=== PATIENT | male | born 1965 | race Caucasian/White ===

== ENCOUNTER 2018-04-12 13:58 | Emergency (ER) | payer BC, OTHER ==
[2018-04-12 14:05] VITALS: BP 175/93
[2018-04-12] MEDS ORDERED: Lidocaine 2% W/EPI 1:100,000* 20 ML MDV INJ ONE (14:37)
--- NOTE | 2018-04-12 14:43 | UC ---
Skin Complaint HPI - HPI Summary HPI Summary: The pt is a 52 yo male with right forearm redness and swelling x 2 days He thinks he initially bumped arm at work He is a diabetic He has a hx of MRSA no f/c no n/v - History of Current Complaint Chief Complaint: UCSkin Time Seen by Provider: 04/12/18 14:30 Stated Complaint: R ARM INJURY-PAINFUL Hx Obtained From: Patient Onset/Duration: Gradual Onset, Lasting Days Timing: Constant Onset Severity: Mild Current Severity: Moderate Pain Intensity: 3 Pain Scale Used: 0-10 Numeric Location: Discrete Character: Swelling, Redness, Raised, Painful Aggravating Factor(s): Touch Alleviating Factor(s): Nothing Associated Signs & Symptoms: Positive: Tenderness. Negative: Nausea, Vomiting, Numbness, Thirst, Diaphoresis, Weakness, Pallor, Shivering, Difficulty Breathing , Fever, Chills, Cough, Wheezing, Chest Pain, Hoarseness, Throat Tightening, Rash, Abdominal Pain, Lightheadedness, Syncope, Drainage, Bruising, Red Streaks , Joint Swelling - Allergy/Home Medications Allergies/Adverse Reactions: Allergies Allergy/AdvReac Type Severity Reaction Status Date / Time No Known Allergies Allergy Verified 02/28/13 17:53 Home Medications: Home Medications amLODIPine TAB* [Norvasc 5 mg TAB*] 10 mg PO DAILY 04/12/18 [History Confirmed 04/12/18] Review of Systems All Other Systems Reviewed And Are Negative: Yes Constitutional: Positive: Negative Skin: Positive: Negative Eyes: Positive: Negative ENT: Positive: Negative Respiratory: Positive: Negative Cardiovascular: Positive: Negative Gastrointestinal: Positive: Negative Genitourinary: Positive: Negative Motor: Positive: Negative Neurovascular: Positive: Negative Musculoskeletal: Positive: Negative Neurological: Positive: Negative Psychological: Positive: Negative PMH/Surg Hx/FS Hx/Imm Hx Previously Healthy: Yes Endocrine History: Diabetes Cardiovascular History: Hypertension - Surgical History Surgical History: Yes Surgery Procedure, Year, and Place: rectal abscess removed 1999 - Family History Known Family History: Positive: Cardiac Disease, Diabetes - Social History Alcohol Use: Weekly Alcohol Amount: a beer a week Substance Use Type: None Smoking Status (MU): Former Smoker Type: Cigarettes Amount Used/How Often: 1 ppd Household Exposure Type: Cigarettes - Immunization History Most Recent Influenza Vaccination: not utd Most Recent Tetanus Shot: utd Most Recent Pneumonia Vaccination: none Physical Exam Triage Information Reviewed: Yes Appearance: Well-Appearing, No Pain Distress, Well-Nourished Vital Signs: Initial Vital Signs Temp 96.7 F 04/12/18 14:02 Pulse 82 04/12/18 14:02 Resp 16 04/12/18 14:02 BP 175/93 04/12/18 14:02 Pulse Ox 98 04/12/18 14:02 Vital Signs Reviewed: Yes Eyes: Positive: Conjunctiva Clear ENT: Negative: Hearing grossly normal, Pharyngeal erythema, Nasal congestion, Nasal drainage, Tonsillar exudate, Trismus, Hoarse voice Respiratory: Positive: Lungs clear, Normal breath sounds, No respiratory distress, No accessory muscle use Cardiovascular: Positive: RRR, No Murmur Neurological: Positive: Alert Psychological Exam: Normal Skin Exam: Other - see image Course/Dx - Diagnoses Provider Diagnoses: right forearm abscess with overlying cellulitis Procedures - Procedure Summary Procedure Summary: INCISIONS AND DRAINAGE OF RIGHT FOREARM ABSCESS Pt came here expecting I and D TIme out sterile prep anesth with 1 cc lido +epi incised with 11 blade about 1 cc pus expresses culture obtained sterile dressing applied tolerated procedure well Discharge - Sign-Out/Discharge Documenting (check all that apply): Patient Departure All imaging exams completed and their final reports reviewed: No Studies - Discharge Plan Condition: Stable Disposition: HOME Prescriptions: Sulfamethox/Trimethoprim DS* [Bactrim DS 800/160 TAB*] 1 tab PO BID #14 tab Patient Education Materials: Abscess (ED), Warm Compress or Soak (ED) Referrals: Jono Guerra MD [Primary Care Provider] - 3 Days (IF NOT BETTER) Additional Instructions: Recheck here or ER if symptoms worsen recheck here in 49 hours if not markedly better a culture is pending I SUSPECT MRSA - Billing Disposition and Condition Condition: STABLE Disposition: Home Images Front/Back of Body, Lg ([place]): 1 - 2x 3 cm area of induration with overlying and surrounding erthema
[2018-04-12] MEDS ORDERED: Sulfamethox/Trimethoprim DS 800/160* TAB PO ONE (15:03)
--- NOTE | 2018-04-13 08:53 | UC ---
- Progress Note Progress Note: Was prescribed bactrim for suspected MRSA. He has Staph aureus, but not MRSA. Sensitivity still pending. Bactrim should work to treat infection, but advise antibiotic might need to be changed if not improving. Discharge - Sign-Out/Discharge Documenting (check all that apply): Patient Departure All imaging exams completed and their final reports reviewed: No Studies - Discharge Plan Condition: Stable Disposition: HOME Prescriptions: Sulfamethox/Trimethoprim DS* [Bactrim DS 800/160 TAB*] 1 tab PO BID #14 tab Patient Education Materials: Abscess (ED), Warm Compress or Soak (ED) Referrals: Jono Guerra MD [Primary Care Provider] - 3 Days (IF NOT BETTER) Additional Instructions: Recheck here or ER if symptoms worsen recheck here in 49 hours if not markedly better a culture is pending I SUSPECT MRSA BP recheck with your MD in 6-8 weeks - Billing Disposition and Condition Condition: STABLE Disposition: Home
--- NOTE | 2018-04-14 15:22 | UC ---
- Progress Note Progress Note: wound + Staph + sensitive to bactrim Pt on bactrm No change kianna 04/14/18 Discharge - Sign-Out/Discharge Documenting (check all that apply): Post-Discharge Follow Up All imaging exams completed and their final reports reviewed: No Studies - Discharge Plan Condition: Stable Disposition: HOME Prescriptions: Sulfamethox/Trimethoprim DS* [Bactrim DS 800/160 TAB*] 1 tab PO BID #14 tab Patient Education Materials: Abscess (ED), Warm Compress or Soak (ED) Referrals: Jono Guerra MD [Primary Care Provider] - 3 Days (IF NOT BETTER) Additional Instructions: Recheck here or ER if symptoms worsen recheck here in 49 hours if not markedly better a culture is pending I SUSPECT MRSA BP recheck with your MD in 6-8 weeks - Billing Disposition and Condition Condition: STABLE Disposition: Home
== END 2018-04-12 15:19 | disposition home or self-care (01) ==
LOC: UCEAST 13:58
DX: L02.413 Cutaneous abscess of right upper limb (principal); B95.61 Methicillin susceptible Staphylococcus aureus infection as the cause of diseases classified elsewhere; E11.9 Type 2 diabetes mellitus without complications; I10 Essential (primary) hypertension; Z79.899 Other long term (current) drug therapy; Z87.891 Personal history of nicotine dependence
CPT/HCPCS: 10060; 87070; 87077; 87186; 87205; 87640; 87641; 99212; A9270-GY; G0463

== ENCOUNTER 2019-08-12 17:57 | Emergency (ER) | payer BC ==
--- OUTSIDE RECORDS SUMMARY | 2019-08-12 18:10 | XMS REPORT | Summary of Care ---
:1965 Author Organization [facility] Address [address] [place] [address] Care Team Providers Name Role Phone Jono Guerra MD Primary Care Provider Encounter Details Date Type Department Care Team Description 08/05/2019 Hospital Encounter Diagnostic Radiology Preoperative [facility] examination, [address] [facility] unspecified [address] [place] [address] Allergies No Known Allergiesdocumented as of this encounter (statuses as of 08/06/2019) Medications Medication Sig Dispensed Refills Start Date End Date Status cloNIDine HCl 0.2 MG Take 0.2 mg by 0 Active Oral Tablet (CATAPRES) mouth Two Times Daily dilTIAZem HCl ER 120 Take 120 mg by 0 Active MG Oral Capsule mouth daily Extended Release 24 Hour (CARDIZEM CD) Ramipril 2.5 MG Oral Take 2.5 mg by 0 Active Capsule mouth every other (ALTACE)Indications: day Indications: takes ever other night takes ever other night Aspirin 81 MG Oral Take 81 mg by 0 Active Tablet Delayed Release mouth daily glipiZIDE 5 MG Oral Take 5 mg by mouth 0 Active Tablet (GLUCOTROL) Two times daily before breakfast and dinner Furosemide 20 MG Oral Take 20 mg by 0 Active Tablet (LASIX) mouth daily Rosuvastatin Calcium Take 20 mg by 0 Active 10 MG Oral Tablet mouth daily (CRESTOR) Carvedilol 25 MG Oral Take 50 mg by 0 Active Tablet (COREG) mouth Two times daily with meals Vitamin D Take 50,000 Units 0 Active (Ergocalciferol) 1.25 by mouth every 7 MG (02244 UT) Oral (seven) days Capsule Indications: (ERGOCALCIFEROL)Indica Sunday tions: Sunday Insulin NPH Isophane & Inject 15 Units 0 Active Regular (70-30) 100 into the skin UNIT/ML Subcutaneous every morning Suspension (HumuLIN/NovoLIN 70-30) Insulin Glargine Inject 30 Units 0 Active (BASAGLAR KWIKPEN SC) into the skin nightly Calcium Carbonate Chew 3 tablets by 0 Active Antacid 500 MG Oral Mouth daily Tablet Chewable (TUMS) documented as of this encounter (statuses as of 08/06/2019) Active Problems Problem Noted Date CKD (chronic kidney disease), stage IV Diabetes mellitus Hypertension Proteinuria GERD (gastroesophageal reflux disease) documented as of this encounter (statuses as of 08/06/2019) Social History Tobacco Use Types Packs/Day Years Used Date Never Assessed Sex Assigned at Date Recorded Not on file Job Start Date Occupation Industry Not on file Not on file Not on file Travel History Travel Start Travel End No recent travel history available. documented as of this encounter Last Filed Vital Signs Not on filedocumented in this encounter Plan of Treatment Date Type Specialty Care Team Description 08/09/2020 Office Visit Transplant Health Maintenance Due Date Last Done Comments MMR Vaccines (1 of 1 - Standard 1966 series) Varicella Vaccines (1 of 2 - 1966 2-dose childhood series) Pneumococcal Vaccine: Pediatrics 1971 (0 to 5 Years) and At-Risk Patients (6 to 64 Years) (1 of 1 - PPSV23) DTaP,Tdap,and Td Vaccines (1 - 1972 Tdap) Hepatitis B Vaccines (1 of 3 - 1984 Risk 3-dose series) Colon Cancer Screening 10 yrs 2015 Influenza Vaccine 02/25/2019 Pneumococcal Vaccine: 65+ Years (1 2030 of 2 - PCV13) HIV Screening Completed 08/05/2019 HIB Vaccines Aged Out No longer eligible based on patient's age to complete this topic Hepatitis A Vaccines Aged Out No longer eligible based on patient's age to complete this topic IPV Vaccines Aged Out No longer eligible based on patient's age to complete this topic documented as of this encounter Procedures Procedure Name Priority Date/Time Associated Diagnosis Comments XR CHEST FRONTAL Routine 08/05/2019 12:09 Preoperative Results for this AND LATERAL 63741 PM EDT examination, procedure are in unspecified the results section. documented in this encounter Results XR Chest Frontal and Lateral (08/05/2019 12:09 PM EDT) Specimen Narrative Performed At PROCEDURE INFORMATION: [facility] Exam: XR Chest, 2 Views Exam date and time: 08/05/2019 12:00 PM Age: 54 years old Clinical indication: Encounter for other preprocedural examination; Other: Kidney transplant evaluation TECHNIQUE: Imaging protocol: XR of the chest Views: 2 views. COMPARISON: No relevant prior studies available. FINDINGS: Lungs: Unremarkable. No consolidation. Pleural space: Unremarkable. No pleural effusion. No pneumothorax. Heart/Mediastinum: Unremarkable. No cardiomegaly. Vasculature: The aorta is arteriosclerotic. 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 IMPRESSION: There is no acute abnormality. THIS DOCUMENT HAS BEEN ELECTRONICALLY SIGNED BY ZULEYMA KNIGHT MD Procedure Note Interface, Received Via [facility] - 08/05/2019 2:44 PM EDT PROCEDURE INFORMATION: Exam: XR Chest, 2 Views Exam date and time: 08/05/2019 12:00 PM Age: 54 years old Clinical indication: Encounter for other preprocedural examination; Other: Kidney transplant evaluation TECHNIQUE: Imaging protocol: XR of the chest Views: 2 views. COMPARISON: No relevant prior studies available. FINDINGS: Lungs: Unremarkable. No consolidation. Pleural space: Unremarkable. No pleural effusion. No pneumothorax. Heart/Mediastinum: Unremarkable. No cardiomegaly. Vasculature: The aorta is arteriosclerotic. 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 IMPRESSION: There is no acute abnormality. THIS DOCUMENT HAS BEEN ELECTRONICALLY SIGNED BY ZULEYMA KNIGHT MD Performing Organization Address City/State/Zipcode Phone Number [facility] [address] [place] [address] documented in this encounter Visit Diagnoses Diagnosis Preoperative examination, unspecified documented in this encounter
--- OUTSIDE RECORDS SUMMARY | 2019-08-12 18:10 | XMS REPORT | Summary of Care ---
:1965 Author Organization [facility] Address 1 [facility] [place] [address] Care Team Providers Name Role Phone MariJono moreno Primary Care Provider Reason for Visit Reason Comments Follow-up 8 week visit Chronic Kidney Disease Stage IV Hypertension Diabetes Encounter Details Date Type Department Care Team Description 07/10/2019 Office Visit [facility] Argenis Beckford, CKD stage G4/A3, GFR 15-29 and albumin creatinine ratio >300 mg/g ([facility]) (Primary Dx); 1 Doug Cabrera PA-C Diabetic glomerulosclerosis ([facility]); [place] 1 DOUG CABRERA Essential hypertension; [id number] [place] [id number] Uncontrolled type 2 diabetes mellitus with hyperglycemia ([facility]) [phone] Allergies No Known Allergiesdocumented as of this encounter (statuses as of 07/11/2019) Medications Medication Sig Dispensed Refills Start Date End Date Status Blood Glucose by Does not apply 1 Kit 0 03/25/2013 Active Monitoring Suppl (BLOOD route. GLUCOSE METER) Does not non-Insulin apply Kit dependent Test Blood Glucose 1 time(s) A DAY Lancets Does not apply by Does not apply 100 Each 0 03/25/2013 Active Misc route. non-Insulin dependent Test Blood Glucose 1 time(s) A DAY Blood Glucose Insulin dependent 100 Strip 0 03/25/2013 Active Monitoring Suppl (BLOOD Test Blood GLUCOSE TEST STRIPS Glucose 1 time(s) STRP) A DAY Aspirin 81 MG Oral Take 81 mg by 30 Tab 0 05/31/2017 Active TabIndications: mouth DAILY. Palpitations Insulin Pen Needle (PEN 1 Each by 20 Each 5 09/29/2016 Active NEEDLES 3/16") 31G X 5 Injection route MM Does not apply Misc EVERY 7 DAYS. Insulin dependent diabetes Insulin Pen Needle (PEN 1 Each by Does 100 Each 3 09/11/2017 Active NEEDLES) 32G X 5 MM not apply route Does not apply Misc EVERY BEDTIME. With basaglar Insulin Pen Needle 1 Each by Does 100 Each 1 05/24/2018 Active (RELION PEN NEEDLES) not apply route 32G X 4 MM Does not EVERY BEDTIME. To apply Misc be used with Basaglar E11.9 last OV 01/25/18 Blood Pressure 1 Each by Does 1 Device 0 09/16/2018 Active Monitoring (BLOOD not apply route PRESSURE MONITOR DAILY. AUTOMAT) Does not apply Device ergocalciferol TAKE 1 CAPSULE BY 14 Cap 5 01/20/2019 Active (DRISDOL, CALCIFEROL, MOUTH EVERY 7 VITAMIN D) 53013 units DAYS Oral Cap Insulin Glargine INJECT 10 TO 30 15 Each 1 01/29/2019 Active (BASAGLAR KWIKPEN) 100 UNITS BENEATH THE UNIT/ML Subcutaneous SKIN AT EVERY Solution Pen-injector BEDTIME glipiZIDE (GLUCOTROL) 5 TAKE 1 TABLET BY 60 Tab 5 03/03/2019 Active MG Oral Tab MOUTH TWICE DAILY Additional Information Patient taking differently: 5 mg BID, Reported on 05/15/2019 8:31 AM Dulaglutide (TRULICITY) 0.75 Inject 0.5 mL beneath the 2 mL 2 03/10/2019 Active MG/0.5ML Subcutaneous Solution skin EVERY 7 DAYS. Pen-injector Insulin NPH Isophane & Regular Inject 15 Units beneath 15 mL 0 03/14/2019 Active (HUMULIN 70/30 KWIKPEN) the skin EVERY MORNING. (70-30) 100 UNIT/ML Subcutaneous Suspension Pen-injector carvedilol (COREG) 25 MG Oral Take 2 Tabs by mouth TWO 120 Tab 5 2018 Active Tab TIMES DAILY WITH MEALS. cloNIDine (CATAPRES) 0.2 MG Take 1 Tab by mouth TWICE 60 Tab 5 04/17/2019 Active Oral Tab DAILY. diltiazem (CARDIZEM SR) 120 MG Take 1 Cap by mouth EVERY 30 Cap 5 2018 Active Oral CAPSULE SR 24 HR TWENTY-FOUR HOURS. Rosuvastatin Calcium (CRESTOR) Take 1 Tab by mouth 90 Tab 3 04/21/2019 Active 20 MG Oral Tab DAILY. ramipril (ALTACE) 2.5 MG Oral Take 1 Cap by mouth EVERY 15 Cap 5 2018 Active Cap OTHER DAY. furosemide (LASIX) 20 MG Oral Take 1 Tab by mouth 30 Tab 5 2019 Active Tab DAILY. documented as of this encounter (statuses as of 07/11/2019) Active Problems Problem Noted Date KARRIE (acute kidney injury) 02/13/2019 Body mass index (BMI) of 40.0-44.9 in adult 09/03/2018 Vitamin D deficiency 05/02/2012 Obesity, unspecified 05/02/2012 Essential hypertension 05/02/2012 Diabetes mellitus out of control 08/25/2011 Mixed hyperlipidemia CKD stage G4/A3, GFR 15-29 and albumin creatinine ratio >300 mg/g documented as of this encounter (statuses as of 07/11/2019) Resolved Problems Problem Noted Date Resolved Date Marta-rectal abscess 09/14/2017 Overview: s/p surgery decreased tone now Tobacco user 11/02/2017 documented as of this encounter (statuses as of 07/11/2019) Immunizations Name Administration Dates Next Due Influenza (IM) Preservative Free 01/25/2018, 03/25/2013, 05/02/2012 PNEUMOCOCCAL POLYSACCHARIDE VACCINE 01/25/2018 documented as of this encounter Social History Tobacco Use Types Packs/Day Years Used Date Former Smoker Cigarettes 0.5 25 Quit: 01/12/2017 Smokeless Tobacco: Former User Alcohol Use Drinks/Week oz/Week Comments Yes 0 Standard drinks or equivalent 0.0 rarely Sex Assigned at Date Recorded Not on file documented as of this encounter Last Filed Vital Signs Vital Sign Reading Time Taken Comments Blood Pressure 142/86 07/10/2019 9:45 AM EST Pulse 64 07/10/2019 9:33 AM EST Temperature - - Respiratory Rate - - Oxygen Saturation - - Inhaled Oxygen Concentration - - Weight - - Height - - Body Mass Index - - documented in this encounter Patient Instructions Patient InstructionsArgenis Beckford PA-C - 07/10/2019 9:30 AM ESTNo changes today. Stay well hydrated. Low salt diet. Follow up in 8 weeks with blood work prior. Call sooner with any concerns. documented in this encounter Progress Notes Argenis Beckford PA-C - 07/10/2019 9:30 AM EST PATIENT: Mina Bernal : 1965 DATE OF SERVICE: 07/10/2019 REFERRING PRACTITIONER: Self-Referred PRIMARY CARE PROVIDER: Jono Guerra Chief Complaint Patient presents with ? Follow-up 8 week visit ? Chronic Kidney Disease Stage IV ? Hypertension ? Diabetes HISTORY OF PRESENT ILLNESS: Mina Bernal is a 54-y.o. male who presents for follow up of chronic kidney disease stage IV. His chronic kidney disease is secondary to longstanding diabetes mellitus (19 years) and hypertension (12 years). His most recent creatinine level was 4.2. Baseline creatinine previously was 2.0 -2.2 but has been climbing the last few months. His estimated glomerular filtration rate is 57. The patient has been feeling well overall. He initially started seeing Dr. Thor Angel in November 2016 for worsening renal function and had severe proteinuria at that time with albumin to creatinine ratio 1727. He was was restarted on [id number] mg daily. A renal sonogram at that time revealed normal size and echogenicity. Albumin to creatinine ratio continued to climb to 3300 by May 2017. In December 2017, KARRIE noted with creatinine up to 3.2 - his diuretic and ACEi were held. Renal sonogram did not reveal any obstruction at that time. He did have improvement in creatinine to 2.3-2.5 afterstopping the ACEi but has come back up to around 3.0 after adding Lasix for volume. Proteinuria has continued to rise and 24 hour urine study shows 19 grams excretion per 24 hours. He had a positive MAKI study in April which was recently repeated and is now negative. Anti ds-dna antibody is negative. ANCA negative, complements normal. No monoclonal proteins noted on serum immunofixation. He is urinating well with no gross hematuria. Positive foam. Not checking blood pressure at home. He denies shortness of breath, chest pain, abdominal pain, flank pain, dysuria, gross hematuria, constipation or diarrhea. 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 Severe interstitial fibrosis and moderate arteriosclerosis." Started low dose ramipril 2.5 mg daily in March 2019. Past Medical History: Diagnosis Date ? CKD (chronic kidney disease) stage 3, GFR 30-59 ml/min ([facility]) ? Diabetes mellitus ? Excessive drinking alcohol EX ? GERD (gastroesophageal reflux disease) 2012 EGD minimal changes ? Hypertension ? Lipidoses ? Marta-rectal abscess 1999 s/p surgery decreased tone now ? Tachycardia ? Tobacco user History reviewed. No pertinent surgical history. Family History Problem Relation Age of Onset ? Heart Disease Mother ? Cancer Father ? Diabetes Unknown ? Heart Unknown 50s Social History Tobacco Use ? Smoking status: Former Smoker Packs/day: 0.50 Years: 25.00 Pack years: 12.50 Types: Cigarettes Last attempt to quit: 01/12/2017 Years since quittin.4 ? Smokeless tobacco: Former User Substance Use Topics ? Alcohol use: Yes Alcohol/week: 0.0 standard drinks Comment: rarely Current Outpatient Medications Medication Sig ? Aspirin 81 MG Oral Tab Take 81 mg by mouth DAILY. ? Blood Glucose Monitoring Suppl (BLOOD GLUCOSE METER) Does not apply Kit by Does not apply route. non-Insulin dependent Test Blood Glucose 1 time(s) A DAY ? Blood Glucose Monitoring Suppl (BLOOD GLUCOSE TEST STRIPS STRP) Insulin dependent Test Blood Glucose 1 time(s) A DAY ? Blood Pressure Monitoring (BLOOD PRESSURE MONITOR AUTOMAT) Does not apply Device 1 Each by Does not apply route DAILY. ? carvedilol (COREG) 25 MG Oral Tab Take 2 Tabs by mouth TWO TIMES DAILY WITH MEALS. ? cloNIDine (CATAPRES) 0.2 MG Oral Tab Take 1 Tab by mouth TWICE DAILY. ? diltiazem (CARDIZEM SR) 120 MG Oral CAPSULE SR 24 HR Take 1 Cap by mouth EVERY TWENTY-FOUR HOURS. ? Dulaglutide (TRULICITY) 0.75 MG/0.5ML Subcutaneous Solution Pen- injector Inject 0.5 mL beneath the skin EVERY 7 DAYS. ? ergocalciferol (DRISDOL, CALCIFEROL, VITAMIN D) 71840 units Oral Cap TAKE 1 CAPSULE BY MOUTHEVERY 7 DAYS ? furosemide (LASIX) 20 MG Oral Tab Take 1 Tab by mouth DAILY. ? glipiZIDE (GLUCOTROL) 5 MG Oral Tab TAKE 1 TABLET BY MOUTH TWICE DAILY ( Patient taking differently: 5 mg TWICE DAILY.) ? Insulin Glargine (BASAGLAR KWIKPEN) 100 UNIT/ML Subcutaneous Solution Pen-injector INJECT 10TO 30 UNITS BENEATH THE SKIN AT EVERY BEDTIME ? Insulin NPH Isophane & Regular (HUMULIN 70/30 KWIKPEN) (70-30) 100 UNIT/ML Subcutaneous Suspension Pen-injector Inject 15 Units beneath the skin EVERY MORNING. ? Insulin Pen Needle (PEN NEEDLES 3/16") 31G X 5 MM Does not apply Misc 1 Each by Injection route EVERY 7 DAYS. Insulin dependent diabetes ? Insulin Pen Needle (PEN NEEDLES) 32G X 5 MM Does not apply Misc 1 Each by Does not apply route EVERY BEDTIME. With basaglar ? Insulin Pen Needle (RELION PEN NEEDLES) 32G X 4 MM Does not apply Misc 1 Each by Does not apply route EVERY BEDTIME. To be used with Basaglar E11.9 last OV 01/25/18 ? Lancets Does not apply Misc by Does not apply route. non-Insulin dependent Test Blood Glucose 1 time(s) A DAY ? ramipril (ALTACE) 2.5 MG Oral Cap Take 1 Cap by mouth EVERY OTHER DAY. ? Rosuvastatin Calcium (CRESTOR) 20 MG Oral Tab Take 1 Tab by mouth DAILY. No current facility-administered medications for this visit. No Known Allergies REVIEW OF SYSTEMS: A review of systems was negative except for as noted in the HPI. PHYSICAL EXAMINATION: VITALS: BP (!) 142/86 | Pulse 64 GENERAL: No acute distress; morbidly obese PULMONARY: Clear to auscultation bilaterally CARDIOVASCULAR: Regular rate and rhythm; no murmurs, no rubs, no gallops ABDOMEN: . truncal adiposity present MUSCULOSKELETAL: no clubbing, cyanosis or edema NEUROLOGICAL: Alert and oriented x 3 PSYCH: Appropriate mood and affect IMPRESSION: ICD-9-CM ICD-10-CM 1. CKD stage G4/A3, GFR 15-29 and albumin creatinine ratio >300 mg/g ([facility]) 585.4 N18.4 URINE PROTEIN / CREATININE RATIO RENAL FAILURE PANEL CBC WITH DIFFERENTIAL INTACT PTH URINE PROTEIN / CREATININE RATIO 2. Diabetic glomerulosclerosis (HCC) 250.40 E11.21 581.81 3. Essential hypertension 401.9 I10 4. Uncontrolled type 2 diabetes mellitus with hyperglycemia (HCC) 250.02 E11.65 PLAN: Mina Bernal is a 54-y.o. year-old male with stage IV chronic kidney disease secondary to longstanding diabetes mellitus, hypertension. 1. CKD Stage G4A3 secondary to longstanding diabetes mellitus, hypertension: Mina appears well. Creatinine up slightly this time. GN workup initially revealed positive MAKI, negative on repeat. Vasculitis workup negative. No monoclonal proteins on serum immunofixation. Renal sonogram negative for post- renal obstruction. Renal biopsy is consistent with diabetic glomerulosclerosis and severe (80%) interstitial fibrosis, which is not a good prognostic indicator. Started ramipril 2.5 mg daily in March 2019, decreased to every other day last visit. Continue diltiazem for both hypertension and anti- proteinuric effects. 2. HTN: initially elevated, better on recheck. If remains above goal of <130/ 80 (given his proteinuria), will increase the diltiazem. 3. Volume: euvolemic. 4. Bone and Mineral Metabolism: pth improved 5. Anemia of CKD: stable, mild anemia 6. Electrolytes: remain ok on low dose ACEi. 7. Nutrition: morbidly obese. Albumin remains good at 3.8 despite nephrotic range proteinuria. 8. Access: referral to [facility] for transplant eval. Referral to dialysis edu. Discussed HD and PD briefly today. 9. Lipids: defer to Dr. Guerra Author: Argenis Beckford PA-C 07/11/2019 16:32 documented in this encounter Plan of Treatment Date Type Specialty Care Team Description 09/04/2019 Office Visit Nephrology Argenis Beckford PA-C [address] [place] [address] 03/15/2020 Office Visit Cardiology Steve Iraheta MD [address] [place] [id number] Name Type Priority Associated Diagnoses Order Schedule RENAL FAILURE PANEL Lab Routine CKD stage G4/A3, GFR 15-29 Expected: 2019 and albumin creatinine (Approximate), Expires: ratio >300 mg/g (HCC) 07/10/2020 CBC WITH DIFFERENTIAL Lab Routine CKD stage G4/A3, GFR 15-29 Expected: and albumin creatinine (Approximate), Expires: ratio >300 mg/g (HCC) 07/10/2020 INTACT PTH Lab Routine CKD stage G4/A3, GFR 15-29 Expected: 07/10/2019 and albumin creatinine (Approximate), Expires: ratio >300 mg/g (HCC) 07/10/2020 Health Maintenance Due Date Last Done Comments Diabetic Eye Exam 1965 DTaP/Tdap/Td Vaccines (1 - 1976 Tdap) Colonoscopy 2015 ZOSTER IMMUNIZATION SERIES 2015 (1 of 2) PNEUMOCOCCAL 0-64 YRS (2 of 01/25/2019 01/25/2018 3 - PCV13) INFLUENZA VACCINE (#1) 2019 01/25/2018, 03/25/2013, 05/02/2012 HEMOGLOBIN A1C 10/06/2019 07/08/2019, 02/13/2019, 12/04/2018, Additional history exists DEPRESSION SCREENING 02/14/2020 02/13/2019 FOOT EXAM 02/14/2020 02/13/2019, 02/13/2019, 11/02/2017 LIPID DISORDER SCREENING 07/08/2020 07/08/2019, 04/21/2019, 02/13/2019, Additional history exists HEPATITIS A IMMUNIZATION Aged Out No longer eligible SERIES based on patient's age to complete this topic HPV IMMUNIZATION SERIES Aged Out No longer eligible based on patient's age to complete this topic MENINGOCOCCAL VACCINE IMM Aged Out No longer eligible based on patient's age to complete this topic documented as of this encounter Goals Goal Patient Goal Associated Recent Patient-Stated? Author Type Problems Progress Blood Pressure Blood Pressure 142/86 No Mari, < 140/90 (07/10/2019 MD Jono 9:45 AM EST) Note: This is an individualized treatment (blood pressure) goal for Mina Bernal: Displayed above (on the left) is your goal for blood pressure control. Your most recent blood pressure is also shown above, on the right. You should try to achieve blood pressures that are lower than your goal listed above (on the left). Glycohemoglobin A1c < 7.0 Diabetes 7.6 (07/08/2019 3:08 PM No Jono Guerra MD EST) Note: This is an individualized treatment (diabetes control, HgbA1C) goal for Mina Bernal: Displayed above is your progress towards your HgbA1C goal. Your goal is shown above (on the left); your most recent HgbA1C is shown on the right. Note that lower numbers are better. Weight loss vs. 18 mo Lifestyle 6.1 (05/15/2019 8:24 AM EST) No Jono Guerra MD max (lbs) >= 10 Note: This is an individualized lifestyle goal for Mina Bernal: Your body mass index (BMI) is more than 30. You should lose weight. A reasonable starting goal is to lose 10 pounds. Displayed above is how many pounds you have lost thus far towards your 10 pound weight loss goal. Keep immunizations current Lifestyle No Jono Guerra MD Note: This is an individualized lifestyle goal for Mina Bernal: Please be sure to keep up-to-date on recommended immunizations. For example, this would include a yearly influenza vaccine. Immunization status can be seen by looking at the Health Maintenance sections of your [facility], Plan of Care, and any After Visit Summaries. Take all prescribed medications as directed Self-management No Jono Guerra MD Note: This is an individualized self-management goal for Mina Bernal: Please take all prescribed medications as directed. 1. Do not skip doses. If you cannot afford your medications, talk with your doctor. 2. Use a pill reminder system such as a pill box if needed. Your pharmacist can help you with this. 3. Contact your Pharmacy 5 days before your medication runs out. If you cannot take your medications for any reasons, talk with your doctor. 4. Please bring all of your medication bottles and inhalers (or a list of all your medications/inhalers) with you to every visit. Potential barriers to meeting all of your care plan goals will continue to be addressed on an ongoing basis. documented as of this encounter Procedures Procedure Name Priority Date/Time Associated Comments Diagnosis URINE PROTEIN / Routine 07/10/2019 4:35 PM CKD stage G4/A3, Results for this CREATININE RATIO EST GFR 15-29 and procedure are in albumin creatinine the results ratio >300 mg/g section. (HCC) documented in this encounter Results URINE PROTEIN / CREATININE RATIO (07/10/2019 4:35 PM EST) Urine Total Protein 263 (H) 0 - 12 MG/DL [facility] Urine Creatinine 77.9 20.0 - 320.0 MG/DL [facility] URINE TP CREATININE 3 No Established [facility] Reference Range [facility] mg/dl Specimen Urine - Urine specimen (specimen) Performing Organization Address City/State/Zipcode Phone Number [facility] [address] [place] [address] [phone] documented in this encounter Visit Diagnoses Diagnosis CKD stage G4/A3, GFR 15-29 and albumin creatinine ratio >300 mg/g (HCC) Diabetic glomerulosclerosis (HCC) Type II or unspecified type diabetes mellitus with renal manifestations, not stated as uncontrolled Essential hypertension Unspecified essential hypertension Uncontrolled type 2 diabetes mellitus with hyperglycemia (HCC) documented in this encounter Insurance Payer Benefit Plan / Subscriber ID Effective Dates Phone Address Type Group JAMIE CHAVEZ [id number] 2017-Present Jamie ROMO PPO Guarantor Name Account Type Relation to Date of Phone Billing Patient Address Mina Bernal Personal/Family 1965 [phone] [id number] ([address]) [address] [phone] [place], [place] (Work) [id number] documented as of this encounter
--- OUTSIDE RECORDS SUMMARY | 2019-08-12 18:10 | XMS REPORT | Summary of Care ---
:1965 Author Organization [facility] Address [address] [place] [address] Care Team Providers Name Role Phone Jono Guerra MD Primary Care Provider Reason for Visit Reason Comments Kidney Evaluation Transplants (Routine) Status Reason Specialty Diagnoses / Referred By Referred To Contact Procedures Contact Authorized Transplant Diagnoses ESRD Argenis Beckford, Transplant Procedures Kidney Transplant Referral PA Provider-Based [address] [place] [address] [address] Phone: [place], [place] [phone] Encounter Details Date Type Department Care Team Description 08/05/2019 Office Visit [facility], Pre-transplant evaluation for chronic kidney disease (Primary Dx); [facility], [facility] Preoperative examination, unspecified [facility] [address] [facility] [address] [facility] [address] [place] [id number] Allergies No Known Allergiesdocumented as of this encounter (statuses as of 08/05/2019) Medications Medication Sig Dispensed Refills Start Date [...] (Ergocalciferol) 1.25 by mouth every 7 MG (20771 UT) Oral (seven) days Capsule Indications: (ERGOCALCIFEROL)Indica [...] as of this encounter (statuses as of 08/05/2019) Active Problems Problem Noted Date CKD (chronic kidney disease), stage IV Diabetes mellitus Hypertension Proteinuria GERD (gastroesophageal reflux disease) documented as of this encounter (statuses as of 08/05/2019) Social History Tobacco Use Types Packs/Day Years Used Date Never Assessed Sex Assigned at Date Recorded Not on file Job Start Date Occupation Industry Not on file Not on file Not on file Travel History Travel Start Travel End No recent travel history available. documented as of this encounter Last Filed Vital Signs Vital Sign Reading Time Taken Comments Blood Pressure 169/91 08/05/2019 9:46 AM EDT Pulse 60 08/05/2019 9:46 AM EDT Temperature 36.7 08/05/2019 9:46 AM EDT C (98.1 F) Respiratory Rate - - Oxygen Saturation 98% 08/05/2019 9:46 AM EDT Inhaled Oxygen Concentration - - Weight 136 kg (299 lb 13.2 oz) 08/05/2019 9:46 AM EDT Height 182.9 cm (6') 08/05/2019 9:46 AM EDT Body Mass Index 40.66 08/05/2019 9:46 AM EDT documented in this encounter Progress Notes Aris Worrell NP - 08/05/2019 9:30 AM EDT NEW KIDNEY TRANSPLANT RECIPIENT EVALUATION M Dr. Beckford has asked for evaluating Mina Bernal for possible kidney transplantation. HISTORY OF PRESENT ILLNESS : Mina Bernal is a 54 y.o. male with CKD IV presumably due to long standing history of Diabetes (19 years), and hypertension (12 years). His diabetes is currently controlled on insulin.The patient has had known renal disease for past 4 years. His most recent creatinine level was 4.2 mg/dl, with GFR of 17 ml.min. Baseline creatinine previously was 2.0-2.2 mg/dl, but has been climbing the past few months. 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 Severe interstitial fibrosis and moderate arteriosclerosis." He currently makes adequate amounts of urine and is not on dialysis yet. He has GN workup initially revealed positive MAKI study in April,, however, repeat is negative. ANCA negative and complements normal. No monoclonal proteins noted on serum immunofixation. He never had any blood transfusions. PMH significant for: CKD IV: Diabetes:On Insulin Hypertension HLD: GERD (2012), EGD minimal changes. Marta-rectal abscess (1999), s/p surgery with decreased tone now. Currently Mina Bernal feels well. Occasional edema to BLE, occasional diarrhea, He denies having nausea, anorexia, emesis, tuberculosis, cancer, seizures, stroke, chest pain, urinary infections, hepatitis, jaundice, gallstones, gastric ulcers, dyspnea, unexplained weight loss, depression, sleep apnea. Compliance history: Good Functional Status: Able to walk more than 2 blocks without any SOB or CP, ABle to climb 2 flight of stairs without any acute issues. Cardiac History: HTN, Arrythmia Significant Infections : none Hx of Cancer :None High Risk Medications: None Adherence Concerns :None Smoking/Alcohol/ Illicit Drug Use: Stopped smoking in 2017. Smoked 2 packs per day for 35 years. Quit 01/12/2017. Denies recreational drug use. Living Donors: 2 sons, and sister would like to donate. Hx of Anesthesia Complications: None PAST MEDICAL HISTORY: has a past medical history of CKD (chronic kidney disease ), stage IV, Diabetes mellitus, GERD (gastroesophageal reflux disease), Hypertension, and Proteinuria. ALLERGIES: Patient has no allergy information on record. MEDICATIONS: Current Outpatient Medications: Aspirin 81 MG Oral Tablet Delayed Release, Take 81 mg by mouth daily, Disp: , Rfl: Calcium Carbonate Antacid 500 MG Oral Tablet Chewable (TUMS), Chew 3 tablets by Mouth daily,Disp: , Rfl: Carvedilol 25 MG Oral Tablet (COREG), Take 50 mg by mouth Two times daily with meals, Disp: , Rfl: cloNIDine HCl 0.2 MG Oral Tablet (CATAPRES), Take 0.2 mg by mouth Two Times Daily, Disp: , Rfl: dilTIAZem HCl ER 120 MG Oral Capsule Extended Release 24 Hour (CARDIZEM CD), Take 120 mg by mouth daily, Disp: , Rfl: Furosemide 20 MG Oral Tablet (LASIX), Take 20 mg by mouth daily, Disp: , Rfl: glipiZIDE 5 MG Oral Tablet (GLUCOTROL), Take 5 mg by mouth Two times daily before breakfast and dinner, Disp: , Rfl: Insulin Glargine (BASAGLAR KWIKPEN SC), Inject 30 Units into the skin nightly, Disp: , Rfl: Insulin NPH Isophane & Regular (70-30) 100 UNIT/ML Subcutaneous Suspension (HumuLIN/NovoLIN 70-30), Inject 15 Units into the skin every morning , Disp: , Rfl: Ramipril 2.5 MG Oral Capsule (ALTACE), Take 2.5 mg by mouth every other day Indications: takes ever other night, Disp: , Rfl: Rosuvastatin Calcium 10 MG Oral Tablet (CRESTOR), Take 20 mg by mouth daily, Disp: , Rfl: Vitamin D (Ergocalciferol) 1.25 MG (79949 UT) Oral Capsule ( ERGOCALCIFEROL), Take 50,000 Units by mouth every 7 (seven) days Indications: Sunday, Disp: , Rfl: PAST SURGICAL HISTORY: No previous surgeries in the past. FAMILY HISTORY: Father at 56 yrs with Metastatic Cancer, histoplasmosis Mother deceases at 88 y.o with heart issues 1 brother with cancer: Esophageal mets to liver, and Hodgkin's B cell Lymphoma. 1 sister at 48 y.o with cancer: leomyosacrcoma MOther had kidney disease in the past. Family history with diabetes and HTN. 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 Smoked 2 packs per day for 35 years. Quit 01/12/2017 Drinks 2-3 beers per month Drinks 3 cups of coffee per day Exposure to second hand smoking Minimal exposure to Asbestos in the past. Social History Socioeconomic History Marital status: Spouse name: Not on file Number of children: Not on file Years of education: Not on file Highest education level: Not on file Occupational History Not on file Social Needs Financial resource strain: Not on file Food insecurity: Worry: Not on file Inability: Not on file Transportation needs: Medical: Not on file Non-medical: Not on file Tobacco Use Smoking status: Not on file Substance and Sexual Activity Alcohol use: Not on file Drug use: Not on file Sexual activity: Not on file Lifestyle Physical activity: Days per week: Not on file Minutes per session: Not on file Stress: Not on file Relationships Social connections: Talks on phone: Not on file Gets together: Not on file Attends protestant service: Not on file Active member of club or organization: Not on file Attends meetings of clubs or organizations: Not on file Relationship status: Not on file Intimate partner violence: Fear of current or ex partner: Not on file Emotionally abused: Not on file Physically abused: Not on file Forced sexual activity: Not on file Other Topics Concern Not on file Social History Narrative Not on file REVIEW OF SYSTEMS: ROS per HPI. The remainder of the systems in the complete ROS are negative. Constitutional: Negative for fever, chills, diaphoresis, activity change, appetite change, fatigue and unexpected weight change. HENT: Negative for facial swelling, neck pain and neck stiffness. Dental: Upper dentures. Negative for tooth abscess or pain, no gingival diseases Eyes: Wear glasses. Negative for discharge, itching and visual disturbance. Respiratory: Negative for cough, choking, chest tightness, shortness of breath and wheezing. Cardiovascular: Negative for chest pain, palpitations and leg swelling. Gastrointestinal: Negative for nausea, vomiting, abdominal pain, diarrhea, constipation, blood in stool, abdominal distention, anal bleeding and rectal pain. Genitourinary: + foaming at times. no history of urinary infection, or Prostate issues. Negative fordysuria or urinary retention. Negative for dysuria, flank pain and difficulty urinating. Musculoskeletal: generalized pain. Negative for joint swelling and arthralgias. Skin: Negative for color change, pallor, rash and wounds. Neurological: Negative for dizziness and syncope. Hematological: Negative for adenopathy. Does not bruise/bleed easily. No history of blood clots. Psychiatric/Behavioral: Negative for behavioral problems, confusion and agitation. PHYSICAL EXAM: Blood pressure (!) 169/91, pulse 60, temperature 36.7 C (98.1 F), temperature source Oral, height 1.829 m (6'), weight 136 kg (299 lb 13.2 oz), SpO2 98 %. Wt Readings from Last 3 Encounters: 08/05/19 136 kg (299 lb 13.2 oz) Body mass index is 40.66 kg/m. Constitutional: Oriented to person, place, and time. well-nourished. No distress. Head: Normocephalic and atraumatic. Pupils are equal. Neck: Normal range of motion. Neck: Supple. No JVD present. No thyromegaly present. Mouth: normal dentition and gums. Exam not concerning for dental caries or abscess. Cardiovascular: No murmur, rub or gallop. Distal pulses are 1+ femoral and 1-2 + pedal pulses and equal. Pulmonary/Chest: Effort normal and breath sounds normal. No respiratory distress. no wheezes. no rales. Abdominal: Softly obese. Bowel sounds are normal, exhibits no distension and no abdominal bruit. no tenderness. no rebound or guarding. Musculoskeletal: Normal range of motion, no edema and no tenderness, no cervical adenopathy. Neurological: alert and oriented to person, place, and time. Gait normal. Skin: no open ulcerations. Skin is warm and dry. No rash noted. Psychiatric: normal mood and affect. behavior is normal. Judgment and thought content normal. REMAINING SYSTEMS: without acute pathology PRIOR LABORATORY DATA AVAILABLE : I reviewed the following laboratory data from the old and existing records No results found for: NA, K, CL, BICARBONATE, BUN, CREATININE, ALBUMIN, GLUCOSE , HGBA1C, CALCIUM, CAION, MG, PHOS, PTH, [id number], WBC, HGB, MCV, PLT, IRON, TIBC, FERRITIN, PTT, INR, CHO, TRIG, HDL, LDL ECHO 03/05/2019: Moderate concentric LVH with Grade I diastolic dysfunction and upper normal left atrial size. Normal LV systolic function with no regional wall motion abnormalities; estimated LVEF 55-60%. Normal right heart size and RV systolic function. No structurally or hemodynamically significant valvular disease. No pericardial effusion. Ejection Fraction 55 % AV AREA 3.48 cm2 RVSP mmHg LA Volume 80 ml LVEDd 5.2 cm LVESd 2.9 cm IVSd 1.5 cm LVPWd 1.59 cm ESV ml EDV ml AV Mean Gradient 5 mmHg ASSESSMENT AND PLAN: Mina Bernal is here for evaluation as a possible kidney transplant recipient. He has CKD IV renal disease secondary to Diabetes and hypertension. He is not on dialysis yet. He will benefit fromkidney transplantation and appears to be a fair candidate to remain on the renal transplant wait list. He has multiple potential living donors. Patient has family history significant for malignancy, and 70 pack year smoking history, which increases his risk for malignant diseases post transplant whileon immunosuppression. In order to continue his evaluation process towards transplantation, along with the routine labs and testings, Mina Bernal will require: Non invasive cardiac Stress Test Need PFT: 70 pack year smoking history CXR to evaluate any pulmonary status. May need CT of chest, if CXR report inconclusive: significantsmoking history. PSA, Colonoscopy Non Contrast CT of abdomen and Pelvis to evaluate his vasculature and abdominal structures He will be presented at our chart review to determine his/her status and what further testing is needed.He understands and is ready to proceed for further evaluation and procedures related to listing for renal transplant. Mina Bernal was informed of the potential risks of kidney transplantation including but not limited to graft thrombosis, bleeding, infection, cancer and even . He understands these risks and wishes to proceed further. The patient was able to review our medical management after transplantation including the need for frequent visits during the initial months post-op. We discussed outcomes for the recipient and graft from a national and center specific standpoint. He understands the needfor adherence to the clinic visit schedule and chronic immunosuppression with its attendant risks. He was counseled regarding the benefits of living donor kidney transplantation. The patient was also told of the ability to list at other transplant centers. We discussed some of the risks of transplantmedications, including the increased risk of cancer, particularly skin and lymphoma, and the infection risks. We discussed that it is illegal to purchase a transplant. He had the opportunity to ask questions and was satisfied with the answers. He was also informed of the risk of recurrent disease. He was counseled on the potential below mentioned risk,benefits and facts of kidney transplantation.He/she had the opportunity to ask question and was satisfied with the answers. Counseling patients on the risk and benefits of Kidney transplant We discussed following various aspects of renal transplantation 1) There are 2 ways to treat ESRD:dialysis and kidney transplantation 2) Kidney transplantation is associated with improvements in quality of life ( e.g greater energy andindependence) and likely improved longevity. 3)There are two types of kidney transplantation: and living donor.As long as certain compatibility tests (ABO blood group and T/B cell cross-match) show satisfactory results,living donors can come from immediate and extended family members Or from non-related individuals with whom the patient shares an "emotional"finch (e.g best friends) 4) Living donors are preferable if available because there is a shorter waiting time to transplantation and overall outcomes are better(patient and graft survival). Potential living donors should be explored with the potential recipient.I also discussed the current wait list and wait times for donor. 5) Overall success of kidney transplantation is quiet good. donor transplants have 90% 1 year and 80% 5 year survival.Living donor transplants have 95% 1 year and 85% 5 year survival. 6)The risk of transplantation are both short term and custodial.Short term risks are associated withthe anesthesia and the surgery.Major complications of surgery are bleeding,clotting,urine leaks,needfor blood transfusions,need for re -operation and . 7)We also discussed the risk of primary non-function,possibility of needing dialysis post-transplantand the issue of rejection/graft loss. 7)Immunosuppresive drugs which the patient will have to take as long as the kidney is functioning might put him/her at a higher risk of infection and cancer as compared to general population.This risk is real but small enough that the overall benefits of transplantation are not compromised.Most patients do very well and do not experience serious forms of either problem.There appears to be also a slightly increased risk of diabetes-mellitus and cancer with current immunosuppressive drugs.Other metabolic side effects include hypertension,osteoporotic bone disease and cataracts. 8) We discussed the risk of recurrence of his/her original disease in the transplant. 9)We discussed that it is illegal to purchase a transplant. 10) The importance of medication and clinic/treatment plan adherence was reiterated.We reviewed the importance of maintaining an ongoing relationship with their primary care physician and routine health maintenance visits and practices. 11) medical terminologist expense of medications ( copay $30-200 or more per month)_ the financial coordinators will give you specifics. We will try to obtain old records for additional information. Thank you for the opportunity to participate in Mina Bernal pre- transplant care. Aris Worrell NP-C [address],[place] [address] documented in this encounter Plan of Treatment Date Type Specialty Care Team Description 08/09/2020 Office Visit Transplant Name Type Priority Associated Diagnoses Order Schedule ABO/RH Blood Bank Routine Preoperative 1 Occurrences examination, starting 08/05/2019 unspecified until 02/05/2020 Basic Metabolic Panel Lab Routine Preoperative 1 Occurrences examination, starting 08/05/2019 unspecified until 02/05/2020 Cardiolipin antibody, Lab Routine Preoperative Expected: IgG examination, 08/12/2019, Expires: unspecified 02/05/2020 CBC and Differential Lab Routine Preoperative 1 Occurrences examination, starting 08/05/2019 unspecified until 02/05/2020 CMV IgG Lab Routine Preoperative 1 Occurrences examination, starting 08/05/2019 unspecified until 02/05/2020 EBV Panel Lab Routine Preoperative Expected: examination, 08/05/2019, Expires: unspecified 10/05/2019 EKG 12 Lead ECG Routine Preoperative Ordered: 08/05/2019 examination, unspecified G6Pd, Qualitative Lab Routine Preoperative 1 Occurrences examination, starting 08/05/2019 unspecified until 02/05/2020 Hepatic Function Panel Lab Routine Preoperative 1 Occurrences examination, starting 08/05/2019 unspecified until 02/05/2020 Hepatitis B surface Lab Routine Preoperative 1 Occurrences antigen examination, starting 08/05/2019 unspecified until 02/05/2020 Hepatitis B surface Lab Routine Preoperative 1 Occurrences antibody examination, starting 08/05/2019 unspecified until 02/05/2020 Hepatitis C antibody Lab Routine Preoperative 1 Occurrences examination, starting 08/05/2019 unspecified until 02/05/2020 HIV Ag Ab Combo Screen Lab Routine Preoperative 1 Occurrences examination, starting 08/05/2019 unspecified until 02/05/2020 HLA Antibody ID Screen Lab Routine Preoperative 1 Occurrences examination, starting 08/05/2019 unspecified until 02/05/2020 HLA molecular mabdr Lab Routine Preoperative 1 Occurrences examination, starting 08/05/2019 unspecified until 02/05/2020 Lipid panel Lab Routine Preoperative 1 Occurrences examination, starting 08/05/2019 unspecified until 02/05/2020 Magnesium Level Lab Routine Preoperative 1 Occurrences examination, starting 08/05/2019 unspecified until 02/05/2020 Mumps antibody, IgG Lab Routine Preoperative 1 Occurrences examination, starting 08/05/2019 unspecified until 02/05/2020 Partial Thromboplastin Lab Routine Preoperative 1 Occurrences Time (PTT) examination, starting 08/05/2019 unspecified until 02/05/2020 Phosphorus Level Lab Routine Preoperative 1 Occurrences examination, starting 08/05/2019 unspecified until 02/05/2020 PSA Diagnostic Lab Routine Preoperative 1 Occurrences examination, starting 08/05/2019 unspecified until 02/05/2020 PTH, intact Lab Routine Preoperative 1 Occurrences examination, starting 08/05/2019 unspecified until 02/05/2020 Protime-INR Lab Routine Preoperative 1 Occurrences examination, starting 08/05/2019 unspecified until 02/05/2020 Quantiferon-TB Gold Plus Lab Routine Preoperative 1 Occurrences examination, starting 08/05/2019 unspecified until 02/05/2020 Renal Type and Screen Blood Bank Routine Preoperative 1 Occurrences examination, starting 08/05/2019 unspecified until 02/05/2020 Rubella antibody, IgG Lab Routine Preoperative 1 Occurrences examination, starting 08/05/2019 unspecified until 02/05/2020 Rubeola antibody IgG Lab Routine Preoperative 1 Occurrences examination, starting 08/05/2019 unspecified until 02/05/2020 Syphilis IgG/IgM Screen Lab Routine Preoperative 1 Occurrences w/Reflex to RPR examination, starting 08/05/2019 unspecified until 02/05/2020 Uric acid Lab Routine Preoperative 1 Occurrences examination, starting 08/05/2019 unspecified until 02/05/2020 Health Maintenance Due Date Last Done Comments MMR Vaccines (1 of 1 - Standard 1966 series) Varicella Vaccines (1 of 2 - 1966 2-dose childhood series) Pneumococcal Vaccine: Pediatrics 1971 (0 to 5 Years) and At-Risk Patients (6 to 64 Years) (1 of 1 - PPSV23) DTaP,Tdap,and Td Vaccines (1 - 1972 Tdap) HIV Screening 1978 Hepatitis B Vaccines (1 of 3 - 1984 Risk 3-dose series) Colon Cancer Screening 10 yrs 2015 Influenza Vaccine 02/25/2019 Pneumococcal Vaccine: 65+ Years (1 2030 of 2 - PCV13) HIB Vaccines Aged Out No longer eligible based on patient's age to complete this topic Hepatitis A Vaccines Aged Out No longer eligible based on patient's age to complete this topic IPV Vaccines Aged Out No longer eligible based on patient's age to complete this topic documented as of this encounter Results XR Chest Frontal and Lateral (08/05/2019 12:09 PM EDT) Specimen Narrative Performed At PROCEDURE INFORMATION: [facility] Exam: XR Chest, 2 Views Exam [...] KNIGHT MD Procedure Note Interface, Received Via Nubli System - 08/05/2019 2:44 PM EDT PROCEDURE [...] MD Performing Organization Address City/State/Zipcode Phone Number [facility] [address] [place] [address] documented in this encounter Visit Diagnoses Diagnosis Pre-transplant evaluation for chronic kidney disease - Primary Other specified pre-operative examination Preoperative examination, unspecified documented in this encounter
--- NOTE | 2019-08-12 19:39 | ED ---
Complex/Multi-Sys Presentation - HPI Summary HPI Summary: 54 year old M presenting to [facility] with a chief complaint of dizziness, lightheadedness, near syncope, a racing heart rate, and nausea since this morning. The patient rates the pain 0/10 in severity. Symptoms aggravated by bending over or looking up. Symptoms alleviated by nothing. Patient reports that he has not eaten yet today. Patient denies any fever, chills, chest pain, headache, vomiting, diarrhea, or new medications. Medication list reviewed. Allergy list reviewed. Home Medications Medication Instructions Recorded Confirmed Type Simvastatin TAB(NF) [Zocor(NF)] 40 mg PO DAILY 04/09/14 04/12/18 History glipiZIDE TAB* [Glucotrol TAB*] 10 mg PO DAILY 04/09/14 04/12/18 History Sulfamethox/Trimethoprim DS* 1 tab PO BID #14 tab 04/12/18 Rx [Bactrim DS 800/160 TAB*] amLODIPine TAB* [Norvasc 5 mg TAB*] 10 mg PO DAILY 04/12/18 04/12/18 History - History Of Current Complaint Chief Complaint: EDDizziness Time Seen by Provider: 08/12/19 19:32 Hx Obtained From: Patient Onset/Duration: Lasting Hours Severity Currently: None Aggravating Factor(s): Bending over or looking up Alleviating Factor(s): None Associated Signs And Symptoms: Positive: Nausea, Other - Racing heart rate - Allergies/Home Medications Allergies/Adverse Reactions: Allergies Allergy/AdvReac Type Severity Reaction Status Date / Time No Known Allergies Allergy Verified 08/12/19 18:03 Home Medications: Home Medications Simvastatin TAB(NF) [Zocor(NF)] 40 mg PO DAILY 04/09/14 [History Confirmed 04/12] glipiZIDE TAB* [Glucotrol TAB*] 10 mg PO DAILY 04/09/14 [History Confirmed 04/12] Sulfamethox/Trimethoprim DS* [Bactrim DS 800/160 TAB*] 1 tab PO BID #14 tab [Rx] amLODIPine TAB* [Norvasc 5 mg TAB*] 10 mg PO DAILY 04/12/18 [History Confirmed 04/12/18] PMH/Surg Hx/FS Hx/Imm Hx Endocrine/Hematology History: Reports: Hx Diabetes - type 2 dm Denies: Hx Thyroid Disease Cardiovascular History: Reports: Hx Hypertension - on meds Denies: Hx Myocardial Infarction Respiratory History: Denies: Hx Asthma, Hx Chronic Obstructive Pulmonary Disease (COPD) GI History: Denies: Hx Ulcer History: Reports: Hx Chronic Renal Failure Musculoskeletal History: Denies: Hx Scoliosis Neurological History: Denies: Hx Headaches, Other Neuro Impairments/Disorders - Surgical History Surgery Procedure, Year, and Place: rectal abscess removed 1999 Infectious Disease History: No Infectious Disease History: Reports: Hx of Known/Suspected MRSA - 4 years ago right forarm Denies: Hx Clostridium Difficile, Hx Hepatitis, Hx Human Immunodeficiency Virus (HIV), Hx Shingles, Hx Tuberculosis, Hx Known/Suspected VRE, Hx Known/ Suspected VRSA, History Other Infectious Disease, Traveled Outside the [place] in Last 30 Days - Family History Known Family History: Positive: Cardiac Disease, Diabetes - Social History Alcohol Use: Weekly Alcohol Amount: a beer a week Substance Use Type: Reports: None Smoking Status (MU): Former Smoker Type: Cigarettes Amount Used/How Often: 1 ppd Review of Systems Negative: Fever, Chills Positive: Other - Racing heart rate. Negative: Chest Pain Positive: Nausea. Negative: Vomiting, Diarrhea Neurological/Mental Status: Other - Dizziness, lightheadedness, near syncope Negative: Headache All Other Systems Reviewed And Are Negative: Yes Physical Exam - Summary Physical Exam Summary: Constitutional: Well-developed, Well-nourished, Alert. (-) Distressed Skin: Warm, Dry HENT: Normocephalic; Atraumatic Eyes: Conjunctiva normal Neck: Musculoskeletal ROM normal neck. (-) JVD, (-) Stridor, (-) Tracheal deviation Cardio: Rhythm regular, rate normal, Heart sounds normal; Intact distal pulses; Radial pulses are 2+ and symmetric. (-) Murmur Pulmonary/Chest wall: Effort normal. (-) Respiratory distress, (-) Wheezes, (-) Rales Abd: Soft, (-) tenderness, (-) Distension, (-) Guarding, (-) Rebound Musculoskeletal: 1+ pitting edema bilaterally. Lymph: (-) Cervical adenopathy Neuro: Alert, Oriented x3 Psych: Mood and affect Normal Triage Information Reviewed: Yes Vital Signs On Initial Exam: Initial Vitals Temp Pulse Resp BP Pulse Ox 99.0 F 70 18 211/95 98 08/12/19 17:58 08/12/19 17:58 08/12/19 17:58 08/12/19 17:58 08/12/19 17:58 Vital Signs Reviewed: Yes Procedures - Sedation Patient Received Moderate/Deep Sedation with Procedure: No Diagnostics - Vital Signs Vital Signs Temp Pulse Resp BP Pulse Ox 08/12/19 17:58 99.0 F 70 18 211/95 98 - Laboratory Result Diagrams: 08/12/19 20:16 08/12/19 20:16 Lab Statement: Any lab studies that have been ordered have been reviewed, and results considered in the medical decision making process. - EKG 20:32 Cardiac Rate: NL - 64 BPM EKG Rhythm: Sinus Rhythm Summary of EKG Findings: Borderline first degree heart block, no evidence of ischemia or arrhythmia. ED physician has reviewed and interpreted this EKG. Re-Evaluation - Re-Evaluation First Eval Re-Evaluation Time: 21:25 Comment: No episodes of near syncope while in the ED. Complex Multi-Symp Course/Dx Course Of Treatment: Patient is here with multiple episodes of near syncope today that occurred when he went from a sitting to standing position. Patient is overall well-appearing and feels better. Patient had blood work performed which is grossly unremarkable outside of elevated creatinine which he has at baseline. Patient has CKD stage IV but no creatinine since 2016 to compare to. Patient was negative for orthostatic hypotension. Patient will follow-up with his primary care doctor - Diagnoses Provider Diagnoses: Near syncope Discharge ED - Sign-Out/Discharge Documenting (check all that apply): Patient Departure - Discharge Plan Condition: Stable Disposition: HOME Patient Education Materials: Near Syncope (ED) Referrals: Jono Guerra MD [Primary Care Provider] - 3 Days Additional Instructions: Follow-up with your PCP in 1-3 days. Return to the emergency department for any severe chest pain, if your heart is racing, if you pass out multiple times, or any other concerning symptoms. Stay hydrated and take it easy for a day or two. - Billing Disposition and Condition Condition: STABLE Disposition: Home - Attestation Statements Document Initiated by Scribe: Yes Documenting Scribe: Nikki Ireland Provider For Whom Scribe is Documenting (Include Credential): Reece Crystal MD Scribe Attestation: Tina, Nikki Ireland, scribed for Reece Crystal MD on 08/12/19 at 2134. Scribe Documentation Reviewed: Yes Provider Attestation: The documentation as recorded by the scribeNikki accurately reflects the service I personally performed and the decisions made by me, Reece Crystal MD Status of Scribe Document: Viewed
[2019-08-12 20:27] LABS: ABS Basophils 0.1 10^3/ul (0-0.2); ABS Eosinophils 0.4 10^3/ul (0-0.6); ABS Lymphocytes 2.2 10^3/ul (1.0-4.8); ABS Monocytes 0.8 10^3/ul (0-0.8); ABS Neutrophils 6.3 10^3/ul (1.5-7.7); Eosinophil % 4.5 %; Hematocrit 33 % (42-52); Hemoglobin 11.4 g/dL (14.0-18.0); Lymphocyte % 22.1 %; Mean Corpuscular HGB Conc 35 g/dL (31-36); Mean Corpuscular Hemoglobin 31 pg (27-31); Mean Corpuscular Volume 88 fL (80-94); Mean Platelet Volume 8.6 fL (7.4-10.4); Platelet Count 244 10^3/uL (150-450); Red Cell Distribution Width 13 % (10-15); White Blood Count 9.9 10^3/uL (3.5-10.8)
[2019-08-12 20:46] LABS: Albumin/Globulin Ratio 1.5 (1-3); BUN/Creatinine Ratio 13.3 (8-20); Calcium 9.8 mg/dL (8.6-10.3); EGFR African American 20.9 (>60); EGFR Non-African American 17.3 (>60); Globulin 2.7 g/dL (2-4); Potassium 3.9 mmol/L (3.5-5.0); Total Bilirubin 0.4 mg/dL (0.2-1.0); Total Protein 6.7 g/dL (6.4-8.9)
[2019-08-12 20:47] LABS: Troponin I 0.01 ng/mL (<0.03)
[2019-08-12 21:38] VITALS: BP 202/88
== END 2019-08-12 21:30 | disposition home or self-care (01) ==
LOC: ED 17:57
DX: R55 Syncope and collapse (principal); R11.0 Nausea; E11.9 Type 2 diabetes mellitus without complications; I10 Essential (primary) hypertension; Z79.899 Other long term (current) drug therapy; Z87.891 Personal history of nicotine dependence; Z86.14 Personal history of Methicillin resistant Staphylococcus aureus infection
CPT/HCPCS: 36415; 80053; 83880; 84484; 85025; 93005; 99283